=== PATIENT | male | born 1945 | race Caucasian/White ===

== ENCOUNTER → 2016-11-16 | Outpatient (CLI) | payer MEDICARE, OTHER ==
[~2016-11-16] MED LIST: ENOX80IN SC; ESOM40CA39 PO; INSLANTI SC; LEVE500T22 PO; MAGNTAB OR; OME20GT; PRED10PA PO; [UNRECOGNIZED DRUG - OTHER]; novalog
[2016-11-16 13:24] LABS: Basophils # (auto) 0 uL; Basophils % (auto) 0.4 % (0.0-2.0); DEFINITIVE VIEW TRANSMISSION; Eosinophils # (auto) 0.7 uL; Eosinophils % (auto) 7.4 % (0.0-7.0); Hematocrit 39.8 % (41.0-53.0); Hemoglobin 12.9 g/dL (13.5-17.5); Lymphocytes # (auto) 3.7 uL; Lymphocytes % (auto) 38.2 % (10.0-50.0); Mean Corpuscular Hemoglobin 29.4 pg (28.0-32.0); Mean Corpuscular Hgb Conc. 32.5 g/dL (32.0-36.0); Mean Corpuscular Volume 90.5 fL (80.0-100.0); Mean Platelet Volume 10.4 fL (7.4-10.4); Monocytes # (auto) 0.7 uL; Monocytes % (auto) 7.5 % (0.0-12.0); Neutrophils # (auto) 4.5 uL; Neutrophils % (auto) 46.5 % (37.0-80.0); Platelet Count (auto) 314 10^3/uL (140-450); Red Cell Distribution Width 13.1 % (11.6-16.0); White Blood Cell 9.7 10^3/uL (4.4-10.8)
[2016-11-16 14:18] LABS: Albumin 3.4 g/dL (3.4-5.0); BUN/Creatinine Ratio 20.4; Bilirubin, Total 0.6 mg/dL (0.2-1.0); Calcium 9.1 mg/dL (8.5-10.1); Potassium 4.8 mmol/L (3.5-5.1); Total Protein 6.9 g/dL (6.4-8.2)
== END | disposition home or self-care (01) ==
LOC: LAB 08:28
PROVIDERS: ATTEND Internal Medicine Cardiovascular Disease
DX: I10 Essential (primary) hypertension (principal); E78.00 Pure hypercholesterolemia, unspecified; E11.9 Type 2 diabetes mellitus without complications; R97.20 Elevated prostate specific antigen [PSA]; R53.81 Other malaise; E03.9 Hypothyroidism, unspecified; D64.9 Anemia, unspecified; E55.9 Vitamin D deficiency, unspecified; N39.0 Urinary tract infection, site not specified; Z94.1 Heart transplant status
CPT/HCPCS: 36415; 80053; 80061; 80197; 82306; 83036; 84153; 84443; 85025

== ENCOUNTER 2017-01-22 20:44 | Inpatient (IN) | payer MEDICARE, OTHER ==
[~2017-01-22] VITALS: Ht 177.8 cm; Wt 103.7 kg
[2017-01-22 21:32] LABS: Basophils # (auto) 0 uL; Eosinophils # (auto) 0.1 uL; Eosinophils % (auto) 0.3 % (0.0-7.0); Hematocrit 37.8 % (41.0-53.0); Hemoglobin 12.4 g/dL (13.5-17.5); Lymphocytes # (auto) 2.1 uL; Lymphocytes % (auto) 10.9 % (10.0-50.0); Mean Corpuscular Hemoglobin 29.4 pg (28.0-32.0); Mean Corpuscular Hgb Conc. 32.7 g/dL (32.0-36.0); Mean Corpuscular Volume 89.8 fL (80.0-100.0); Mean Platelet Volume 8.2 fL (7.4-10.4); Monocytes # (auto) 1.6 uL; Monocytes % (auto) 8.1 % (0.0-12.0); Neutrophils # (auto) 15.8 uL; Neutrophils % (auto) 80.7 % (37.0-80.0); Platelet Count (auto) 304 10^3/uL (140-450); Red Cell Distribution Width 13.8 % (11.6-16.0); White Blood Cell 19.6 10^3/uL (4.4-10.8)
[2017-01-22] MEDS ORDERED: cefTAZidime 1 GM in D5W 5% 50 ML IV SCH (21:45)
[2017-01-22] MEDS: SODIUM CHLORIDE 0.9% 1,000 ML IV SCH (21:45)
[2017-01-22] MEDS ORDERED: MORPHINE SULF INJ 2 MG/ML SYRINGE 1ML IV PRN (21:45)
[2017-01-22] MEDS ORDERED: NITROGLYCERIN 0.4 MG SL TAB SL PRN (21:45)
[2017-01-22] MEDS ORDERED: VANCOMYCIN PER PHARMACY 0 MG IV SCH (21:45)
[2017-01-22] MEDS ORDERED: DEXTROSE (50%) 50ML SYRG IV PRN (21:45)
[2017-01-22 21:49] LABS: INR 0.99 (0.9-1.15); Prothrombin Time 10.7 sec (9.37-12.3)
[2017-01-22 21:57] LABS: Albumin 3.3 g/dL (3.4-5.0); Alkaline Phosphatase 54 U/L (45-117); Amylase 57 U/L (25-115); Anion Gap 9 (5-15); Aspartate Aminotransferase 17 U/L (15-37); BUN/Creatinine Ratio 23.5; Bilirubin, Total 0.6 mg/dL (0.2-1.0); Blood Urea Nitrogen 32 mg/dL (7-18); Calcium 8.9 mg/dL (8.5-10.1); Carbon Dioxide 25 mmol/L (21-32); Chloride 106 mmol/L (98-107); GFR African American 66 mL/min; GFR Non-African American 55 mL/min; Glucose 129 mg/dL (74-106); Magnesium 1.6 mg/dL (1.6-2.6); Potassium 5.4 mmol/L (3.5-5.1); Sodium 140 mmol/L (136-145); Total Protein 6.6 g/dL (6.4-8.2)
[2017-01-22] MEDS: FAMOTIDINE INJECTION 40 MG in SODIUM CHL 0.9% 100 ML IV SCH (22:00)
[2017-01-22] MEDS ORDERED: LEVETIRACETAM 500 MG TAB PO ONE (22:00)
[2017-01-22 22:01] LABS: Urine Bilirubin Negative (Negative); Urine Blood Negative /uL (Negative); Urine Color Yellow (Yellow); Urine Glucose Normal (Normal); Urine Hyaline Cast FEW /lpf (0 - 2); Urine Ketone Negative (Negative); Urine Nitrite Negative (Negative); Urine RBC <1 /hpf (0 - 3); Urine Urobilinogen Normal (Negative); Urine pH 6.5 (5.0-8.0)
[2017-01-22] MEDS: MYCOPHENOLIC ACID 360 MG PO SCH (23:04)
[2017-01-22] MEDS: cefTAZidime 1 GM in D5W 5% 50 ML IV SCH (23:05)
[2017-01-23] MEDS: ACCU-CHEK COMFORT CURVE STRIP VI SCH ×7 (00:19→23:49)
[2017-01-23] MEDS: InsuLIN REG 1unit/0.01ml Soln (100units/ml) SC SCH ×7 (04:41→23:56)
[2017-01-23] MEDS: HYDROmorphone HCL 2 MG/ML VL IV PRN ×5 (04:49→20:52)
[2017-01-23] MEDS: cefTAZidime 1 GM in D5W 5% 50 ML IV SCH ×3 (06:38→22:20)
[2017-01-23 06:41] LABS: Basophils # (auto) 0 uL; Basophils % (auto) 0.1 % (0.0-2.0); Eosinophils # (auto) 0.1 uL; Eosinophils % (auto) 0.6 % (0.0-7.0); Hematocrit 33.9 % (41.0-53.0); Hemoglobin 11.1 g/dL (13.5-17.5); Lymphocytes % (auto) 13.1 % (10.0-50.0); Mean Corpuscular Hemoglobin 29.5 pg (28.0-32.0); Mean Corpuscular Hgb Conc. 32.9 g/dL (32.0-36.0); Mean Corpuscular Volume 89.6 fL (80.0-100.0); Mean Platelet Volume 8.7 fL (7.4-10.4); Monocytes # (auto) 1.4 uL; Monocytes % (auto) 9.1 % (0.0-12.0); Neutrophils # (auto) 12.1 uL; Neutrophils % (auto) 77.1 % (37.0-80.0); Platelet Count (auto) 263 10^3/uL (140-450); Red Cell Distribution Width 13.9 % (11.6-16.0); White Blood Cell 15.6 10^3/uL (4.4-10.8)
[2017-01-23 06:59] LABS: BUN/Creatinine Ratio 22.5; Calcium 8.4 mg/dL (8.5-10.1)
[2017-01-23] MEDS: SODIUM CHLORIDE 0.9% 1,000 ML IV SCH ×2 (07:54→17:37)
[2017-01-23] MEDS: METOCLOPRAMIDE HCL 5MG/ml INJ 2ml VIAL IV PRN ×2 (07:54→14:32)
[2017-01-23] MEDS: MYCOPHENOLIC ACID 360 MG PO SCH ×2 (10:00→21:49)
[2017-01-23] MEDS ORDERED: PREDNISONE 5 MG PO SCH (10:00)
[2017-01-23] MEDS: FAMOTIDINE INJECTION 40 MG in SODIUM CHL 0.9% 100 ML IV SCH ×2 (10:24→21:31)
[2017-01-23] MEDS: ENOXAPARIN SOD 80 MG/0.8ML SYRINGE SC SCH (10:24)
[2017-01-23] MEDS: LEVETIRACETAM 500 MG TAB PO SCH (10:24)
[2017-01-23] MEDS: predniSONE 5 MG TAB PO SCH (10:24)
[2017-01-23] MEDS: VANCOMYCIN 1,250 MG in D5W 5% 250 ML IV SCH ×3 (11:39)
[2017-01-23] MEDS ORDERED: BISACODYL 10 MG RECT SUPP PR PRN (14:00)
[2017-01-23] MEDS ORDERED: BISACODYL 10 MG RECT SUPP PR ONE (14:00)
[2017-01-24] VITALS (7 sets, daily range): BP systolic 125–146; BP diastolic 72–87
[2017-01-24] MEDS: VANCOMYCIN 1,250 MG in D5W 5% 250 ML IV SCH (00:24)
[2017-01-24] MEDS: HYDROmorphone HCL 2 MG/ML VL IV PRN ×4 (00:33→23:05)
[2017-01-24] MEDS: SODIUM CHLORIDE 0.9% 1,000 ML IV SCH ×3 (03:45→23:45)
[2017-01-24] MEDS: InsuLIN REG 1unit/0.01ml Soln (100units/ml) SC SCH ×5 (04:00→20:43)
[2017-01-24] MEDS: ACCU-CHEK COMFORT CURVE STRIP VI SCH ×5 (04:14→20:00)
[2017-01-24] MEDS: cefTAZidime 1 GM in D5W 5% 50 ML IV SCH ×3 (05:49→22:10)
[2017-01-24 05:55] LABS: Basophils # (auto) 0 uL; Basophils % (auto) 0.4 % (0.0-2.0); Eosinophils # (auto) 0.4 uL; Eosinophils % (auto) 4.4 % (0.0-7.0); Hematocrit 34.6 % (41.0-53.0); Hemoglobin 11.3 g/dL (13.5-17.5); Lymphocytes # (auto) 1.2 uL; Lymphocytes % (auto) 13.2 % (10.0-50.0); Mean Corpuscular Hemoglobin 29.2 pg (28.0-32.0); Mean Corpuscular Hgb Conc. 32.6 g/dL (32.0-36.0); Mean Corpuscular Volume 89.7 fL (80.0-100.0); Mean Platelet Volume 9.1 fL (7.4-10.4); Monocytes # (auto) 0.8 uL; Monocytes % (auto) 8.8 % (0.0-12.0); Neutrophils # (auto) 6.5 uL; Neutrophils % (auto) 73.2 % (37.0-80.0); Platelet Count (auto) 248 10^3/uL (140-450); Red Cell Distribution Width 13.9 % (11.6-16.0); White Blood Cell 8.9 10^3/uL (4.4-10.8)
[2017-01-24 06:11] LABS: BUN/Creatinine Ratio 17.9; Calcium 8.2 mg/dL (8.5-10.1); Potassium 4.3 mmol/L (3.5-5.1)
[2017-01-24] MEDS: predniSONE 5 MG TAB PO SCH ×2 (08:43→08:44)
[2017-01-24] MEDS: ENOXAPARIN SOD 80 MG/0.8ML SYRINGE SC SCH ×2 (08:43→08:45)
[2017-01-24] MEDS: LEVETIRACETAM 500 MG TAB PO SCH ×2 (08:44→17:57)
[2017-01-24] MEDS: FAMOTIDINE INJECTION 40 MG in SODIUM CHL 0.9% 100 ML IV SCH ×2 (09:33→22:09)
[2017-01-24] MEDS: MYCOPHENOLIC ACID 360 MG PO SCH ×2 (10:00→18:52)
[2017-01-24] MEDS ORDERED: TACR1CAP19 PO (14:09)
[2017-01-24] MEDS ORDERED: MAGNESIUM CITRATE SOLUTION 300 ML BTL PO ONE (14:30)
[2017-01-24] MEDS ORDERED: TACROLIMUS 1 MG CAP PO ONE (14:45)
[2017-01-24] MEDS ORDERED: NOR5T PO (19:04)
[2017-01-24] MEDS ORDERED: SUCR1TAB38 PO (19:04)
[2017-01-24] MEDS ORDERED: GEMF600T3 PO (19:04)
[2017-01-24] MEDS ORDERED: MYCO1TAB2 PO (19:08)
[2017-01-24] MEDS: TACROLIMUS 1 MG CAP PO SCH (22:11)
[2017-01-25] VITALS (7 sets, daily range): BP systolic 118–140; BP diastolic 54–85
[2017-01-25] MEDS: ACCU-CHEK COMFORT CURVE STRIP VI SCH ×7 (00:03→23:32)
[2017-01-25] MEDS: InsuLIN REG 1unit/0.01ml Soln (100units/ml) SC SCH ×7 (03:59→23:32)
[2017-01-25 04:19] LABS: Basophils # (auto) 0 uL; Basophils % (auto) 0.4 % (0.0-2.0); Eosinophils # (auto) 0.6 uL; Eosinophils % (auto) 6.1 % (0.0-7.0); Hematocrit 30.6 % (41.0-53.0); Lymphocytes # (auto) 1.6 uL; Lymphocytes % (auto) 16.6 % (10.0-50.0); Mean Corpuscular Hemoglobin 29.3 pg (28.0-32.0); Mean Corpuscular Hgb Conc. 32.7 g/dL (32.0-36.0); Mean Corpuscular Volume 89.7 fL (80.0-100.0); Mean Platelet Volume 7.9 fL (7.4-10.4); Monocytes # (auto) 1.2 uL; Monocytes % (auto) 12.6 % (0.0-12.0); Neutrophils # (auto) 6.2 uL; Neutrophils % (auto) 64.3 % (37.0-80.0); Platelet Count (auto) 245 10^3/uL (140-450); Red Cell Distribution Width 13.6 % (11.6-16.0); White Blood Cell 9.6 10^3/uL (4.4-10.8)
[2017-01-25 04:43] LABS: BUN/Creatinine Ratio 22.5; Calcium 7.4 mg/dL (8.5-10.1); Potassium 4.1 mmol/L (3.5-5.1)
[2017-01-25] MEDS ORDERED: VANCOMYCIN 1,250 MG in D5W 5% 250 ML IV SCH (05:00)
[2017-01-25] MEDS: cefTAZidime 1 GM in D5W 5% 50 ML IV SCH (05:48)
[2017-01-25] MEDS: HYDROmorphone HCL 2 MG/ML VL IV PRN ×5 (05:48→23:31)
[2017-01-25] MEDS: SODIUM CHLORIDE 0.9% 1,000 ML IV SCH ×2 (09:49→19:46)
[2017-01-25] MEDS: METOCLOPRAMIDE HCL 5MG/ml INJ 2ml VIAL IV PRN (09:58)
[2017-01-25] MEDS: predniSONE 5 MG TAB PO SCH (10:00)
[2017-01-25] MEDS: TACROLIMUS 1 MG CAP PO SCH ×2 (10:00→21:28)
[2017-01-25] MEDS: LEVETIRACETAM 500 MG TAB PO SCH ×2 (10:00→18:10)
[2017-01-25] MEDS: MYCOPHENOLIC ACID 360 MG PO SCH ×2 (10:01→21:29)
[2017-01-25] MEDS: ENOXAPARIN SOD 80 MG/0.8ML SYRINGE SC SCH (10:01)
[2017-01-25] MEDS: CEPHALEXIN 250 MG CAP PO SCH ×2 (14:58→21:27)
[2017-01-25] MEDS ORDERED: MAGNESIUM CITRATE SOLUTION 300 ML BTL PO ONE ×2 (17:00→22:00)
[2017-01-25] MEDS: FAMOTIDINE 20 MG TAB PO SCH (21:27)
[2017-01-26] MEDS: ACCU-CHEK COMFORT CURVE STRIP VI SCH ×4 (03:35→16:00)
[2017-01-26] MEDS: InsuLIN REG 1unit/0.01ml Soln (100units/ml) SC SCH ×4 (03:37→16:40)
[2017-01-26 05:01] VITALS: BP 142/84
[2017-01-26] MEDS: SODIUM CHLORIDE 0.9% 1,000 ML IV SCH ×2 (05:45→16:40)
[2017-01-26] MEDS: HYDROmorphone HCL 2 MG/ML VL IV PRN ×3 (06:34→12:32)
[2017-01-26 07:53] VITALS: BP 143/85
[2017-01-26 08:00] VITALS: BP 143/85
[2017-01-26] MEDS: CEPHALEXIN 250 MG CAP PO SCH (09:52)
[2017-01-26] MEDS: MYCOPHENOLIC ACID 360 MG PO SCH (09:53)
[2017-01-26] MEDS: FAMOTIDINE 20 MG TAB PO SCH (09:53)
[2017-01-26] MEDS: LEVETIRACETAM 500 MG TAB PO SCH ×2 (09:53→18:00)
[2017-01-26] MEDS: predniSONE 5 MG TAB PO SCH (09:53)
[2017-01-26] MEDS: TACROLIMUS 1 MG CAP PO SCH (09:54)
[2017-01-26] MEDS: ENOXAPARIN SOD 80 MG/0.8ML SYRINGE SC SCH (09:54)
[2017-01-26 17:13] VITALS: BP 150/91
[2017-01-26 17:32] VITALS: BP 150/91
== END 2017-01-26 18:05 | disposition home or self-care (01) | DRG 862 ==
LOC: EDBD 20:44 → ER 20:45 → TELE 20:46 → EAST 01-23 23:36
PROVIDERS: ADMIT Internal Medicine Cardiovascular Disease; ATTEND Internal Medicine Cardiovascular Disease
PROC: 5A09357 Assistance with Respiratory Ventilation, Less than 24 Consecutive Hours, Continuous Positive Airway Pressure (ICD-10-PCS; principal; 2017-01-22)
DX: T81.4XXA Infection following a procedure, initial encounter (principal); A41.9 Sepsis, unspecified organism; L03.90 Cellulitis, unspecified; K56.60 Unspecified intestinal obstruction; I25.811 Atherosclerosis of native coronary artery of transplanted heart without angina pectoris; Y83.9 Surgical procedure, unspecified as the cause of abnormal reaction of the patient, or of later complication, without mention of misadventure at the time of the procedure; C44.91 Basal cell carcinoma of skin, unspecified; C44.92 Squamous cell carcinoma of skin, unspecified; E78.5 Hyperlipidemia, unspecified; I10 Essential (primary) hypertension; J98.6 Disorders of diaphragm; K52.9 Noninfective gastroenteritis and colitis, unspecified; M19.90 Unspecified osteoarthritis, unspecified site; Z95.5 Presence of coronary angioplasty implant and graft
CPT/HCPCS: 36415; 71010; 74000; 74020; 80048; 80053; 80202; 81001; 82150; 82962; 83690; 83735; 84484; 85025; 85610; 85730; 87040; 87081; 87086; 93005; 94660; 96374; 96375; J1815; J3490; J7060; J7507

== ENCOUNTER → 2017-02-02 | Outpatient (CLI) | payer MEDICARE ==
[~2017-02-02] VITALS: Ht 30.5 cm; Wt 0.5 kg
[~2017-02-02] MED LIST changes: +GEMF600T3 PO; +IOHEXOL 350 MG/ML 100ML IJ ONE; +MYCO1TAB2 PO; +NOR5T PO; +SODIUM CHLORIDE 0.9% 1,000 ML IV SCH; +SUCR1TAB38 PO; +TACR1CAP19 PO; -[UNRECOGNIZED DRUG - OTHER]
[2017-02-02 10:20] VITALS: BP 106/76
[2017-02-02 12:10] VITALS: BP 110/80
== END | disposition home or self-care (01) ==
LOC: Rad HDHVI 10:08
PROVIDERS: ATTEND Internal Medicine Cardiovascular Disease
DX: K55.9 Vascular disorder of intestine, unspecified (principal)
CPT/HCPCS: 74175; 96361; 96374; G0463; Q9967; 96360

== ENCOUNTER → 2017-04-05 | Outpatient (CLI) | payer MEDICARE ==
[~2017-04-05] MED LIST changes: +HYDR-4663 PO; -IOHEXOL 350 MG/ML 100ML IJ ONE; -NOR5T PO; -SODIUM CHLORIDE 0.9% 1,000 ML IV SCH
== END | disposition home or self-care (01) ==
LOC: Rad HDHVI 13:54
PROVIDERS: ATTEND Internal Medicine Cardiovascular Disease
DX: I10 Essential (primary) hypertension (principal); E78.5 Hyperlipidemia, unspecified
CPT/HCPCS: 93306

== ENCOUNTER → 2017-04-09 | Outpatient (CLI) | payer MEDICARE ==
[~2017-04-09] VITALS: Ht 177.8 cm; Wt 92.1 kg
[~2017-04-09] MED LIST changes: +ADENOSINE 77 MG in GIVE UN-DILUTED 0 ML IV ONE; +ADENOSINE 90 MG/30 ML INJ IV ONE
== END | disposition home or self-care (01) ==
LOC: Rad HDHVI 13:47
PROVIDERS: ATTEND Internal Medicine Cardiovascular Disease
DX: I11.0 Hypertensive heart disease with heart failure (principal); I50.9 Heart failure, unspecified; E78.00 Pure hypercholesterolemia, unspecified; E11.9 Type 2 diabetes mellitus without complications; R06.02 Shortness of breath; Z95.0 Presence of cardiac pacemaker
CPT/HCPCS: 78452; 93005; 96374; 96375; A9500; J0153

== ENCOUNTER → 2017-04-24 | Outpatient (CLI) | payer MEDICARE ==
[~2017-04-24] MED LIST changes: -ADENOSINE 77 MG in GIVE UN-DILUTED 0 ML IV ONE; -ADENOSINE 90 MG/30 ML INJ IV ONE
== END | disposition home or self-care (01) ==
LOC: Rad HDHVI 11:18
PROVIDERS: ATTEND Internal Medicine Cardiovascular Disease
DX: I73.9 Peripheral vascular disease, unspecified (principal)
CPT/HCPCS: 93926

== ENCOUNTER → 2017-04-27 | Outpatient (CLI) | payer MEDICARE ==
[~2017-04-27] VITALS: Ht 177.8 cm; Wt 93.0 kg
[~2017-04-27] MED LIST changes: +ATOR40TA52 PO; +HYDR-4072 PO; +LEVE250T18 PO; +OMEP20CA74 PO; +PRE1T PO
[2017-04-27 11:30] VITALS: BP 107/76
[2017-04-27 12:00] VITALS: BP 116/73
[2017-04-27 17:02] LABS: Basophils # (auto) 0 uL; Basophils % (auto) 0.4 % (0.0-2.0); CONDITION Y; Eosinophils # (auto) 0.4 uL; Eosinophils % (auto) 3.2 % (0.0-7.0); Hematocrit 39.2 % (41.0-53.0); Hemoglobin 12.9 g/dL (13.5-17.5); Lymphocytes # (auto) 2.5 uL; Lymphocytes % (auto) 20.3 % (10.0-50.0); Mean Corpuscular Hemoglobin 29.7 pg (28.0-32.0); Mean Corpuscular Hgb Conc. 32.9 g/dL (32.0-36.0); Mean Corpuscular Volume 90.1 fL (80.0-100.0); Mean Platelet Volume 9.7 fL (7.4-10.4); Monocytes # (auto) 0.9 uL; Monocytes % (auto) 7.1 % (0.0-12.0); Neutrophils # (auto) 8.4 uL; Platelet Count (auto) 263 10^3/uL (140-450); Red Cell Distribution Width 13.7 % (11.6-16.0); White Blood Cell 12.2 10^3/uL (4.4-10.8)
[2017-04-27 17:08] LABS: Potassium 4.9 mmol/L (3.5-5.1)
[2017-04-27 17:11] LABS: BUN/Creatinine Ratio 22.8
[2017-04-27 17:23] LABS: INR 0.96 (0.9-1.15); Partial Thromboplastin Time 25.1 sec (22.64-33.71); Prothrombin Time 10.5 sec (9.37-12.3)
== END | disposition home or self-care (01) ==
LOC: CHF HDHVI 10:56
PROVIDERS: ATTEND Internal Medicine Cardiovascular Disease
DX: Z01.818 Encounter for other preprocedural examination (principal); I10 Essential (primary) hypertension; D64.9 Anemia, unspecified; R79.1 Abnormal coagulation profile
CPT/HCPCS: 36415; 80048; 85025; 85610; 85730; 93005; G0463

== ENCOUNTER → 2017-05-03 | Day surgery (SDC) | payer MEDICARE ==
[~2017-05-03] MED LIST changes: +ANGIOMAX 250 MG VIAL IV ONE; -ESOM40CA39 PO; +HEPARIN IN NS 1000Units/500mL 1,500 ML ONE; -HYDR-4663 PO; +IOHEXOL 350 MG/ML 100ML IJ ONE; +LIDOCAINE 2%HCL (LOCAL ANESTH.) INJ 20ML MDV ONE; +MIDAZOLAM HCL 1MG/1ML-2 ML VIAL ONE; -OME20GT; +SODIUM CHL 0.9% 0 ML ONE; +fentaNYL CITRATE 100 MCG/2 ML VL ONE
== END | disposition home or self-care (01) ==
LOC: CATH 09:50
PROVIDERS: ATTEND Internal Medicine Cardiovascular Disease
DX: I42.9 Cardiomyopathy, unspecified (principal); Z94.1 Heart transplant status; I25.2 Old myocardial infarction; I99.8 Other disorder of circulatory system; M19.90 Unspecified osteoarthritis, unspecified site; J40 Bronchitis, not specified as acute or chronic; F41.9 Anxiety disorder, unspecified
CPT/HCPCS: 82962; 93460; J2250

== ENCOUNTER → 2017-05-11 | Outpatient (CLI) | payer MEDICARE ==
[~2017-05-11] MED LIST changes: -ANGIOMAX 250 MG VIAL IV ONE; -HEPARIN IN NS 1000Units/500mL 1,500 ML ONE; -IOHEXOL 350 MG/ML 100ML IJ ONE; -LIDOCAINE 2%HCL (LOCAL ANESTH.) INJ 20ML MDV ONE; -MIDAZOLAM HCL 1MG/1ML-2 ML VIAL ONE; -SODIUM CHL 0.9% 0 ML ONE; -fentaNYL CITRATE 100 MCG/2 ML VL ONE
[2017-05-11 16:51] LABS: Albumin 3.3 g/dL (3.4-5.0); BUN/Creatinine Ratio 19.2; Calcium 8.2 mg/dL (8.5-10.1)
[2017-05-11 16:53] LABS: Basophils # (auto) 0 uL; Basophils % (auto) 0.2 % (0.0-2.0); Bilirubin, Total 0.5 mg/dL (0.2-1.0); CONDITION Y; Eosinophils # (auto) 0.1 uL; Eosinophils % (auto) 0.8 % (0.0-7.0); Hematocrit 39.7 % (41.0-53.0); Lymphocytes # (auto) 2.8 uL; Lymphocytes % (auto) 24.8 % (10.0-50.0); Mean Corpuscular Hemoglobin 29.6 pg (28.0-32.0); Mean Corpuscular Hgb Conc. 32.8 g/dL (32.0-36.0); Mean Corpuscular Volume 90.4 fL (80.0-100.0); Mean Platelet Volume 9.9 fL (7.4-10.4); Monocytes # (auto) 0.6 uL; Monocytes % (auto) 5.2 % (0.0-12.0); Neutrophils # (auto) 7.8 uL; Platelet Count (auto) 297 10^3/uL (140-450); Red Cell Distribution Width 13.7 % (11.6-16.0); White Blood Cell 11.3 10^3/uL (4.4-10.8)
[2017-05-11 17:00] LABS: INR 0.92 (0.9-1.15); Partial Thromboplastin Time 24.7 sec (22.64-33.71)
== END | disposition home or self-care (01) ==
LOC: LAB 10:39
PROVIDERS: ATTEND Internal Medicine Cardiovascular Disease
DX: I10 Essential (primary) hypertension (principal); R97.20 Elevated prostate specific antigen [PSA]; R53.81 Other malaise; E03.9 Hypothyroidism, unspecified; R79.1 Abnormal coagulation profile; D68.59 Other primary thrombophilia
CPT/HCPCS: 36415; 80053; 80197; 81241; 84153; 84403; 84443; 85025; 85301; 85302; 85305; 85306; 85384; 85610; 85613; 85670; 85705; 85730; 85732

== ENCOUNTER → 2017-06-27 | Outpatient (CLI) | payer MEDICARE ==
[~2017-06-27] MED LIST changes: +CYANOCOBALAMIN (B-12) 1000 MCG/1 ML VIAL IM ONE; +CYANOCOBALAMIN (B-12) 1000 MCG/1 ML VIAL ONE
[2017-06-27 11:00] VITALS: BP 116/74
[2017-06-27 12:30] VITALS: BP 120/72
== END | disposition home or self-care (01) ==
LOC: CHF HDHVI 10:55
PROVIDERS: ATTEND Internal Medicine Cardiovascular Disease
DX: J98.11 Atelectasis (principal); I70.0 Atherosclerosis of aorta; J90 Pleural effusion, not elsewhere classified
CPT/HCPCS: 71020; 96372; G0463; J3420

== ENCOUNTER → 2017-07-23 | Outpatient (CLI) | payer MEDICARE ==
[~2017-07-23] MED LIST changes: -CYANOCOBALAMIN (B-12) 1000 MCG/1 ML VIAL IM ONE; -CYANOCOBALAMIN (B-12) 1000 MCG/1 ML VIAL ONE
== END | disposition home or self-care (01) ==
LOC: Rad HDHVI 16:23
PROVIDERS: ATTEND Internal Medicine Cardiovascular Disease
DX: I70.0 Atherosclerosis of aorta (principal)
CPT/HCPCS: 71250

== ENCOUNTER → 2017-07-30 | Outpatient (CLI) | payer MEDICARE ==
[~2017-07-30] MED LIST changes: +SODIUM CHLORIDE 0.9% 1,000 ML IV SCH
[2017-07-30 15:00] VITALS: BP 122/68
[2017-07-30 16:23] LABS: Basophils # (auto) 0 uL; Basophils % (auto) 0.3 % (0.0-2.0); Eosinophils # (auto) 0.3 uL; Eosinophils % (auto) 2.4 % (0.0-7.0); Hematocrit 44.3 % (41.0-53.0); Hemoglobin 14.5 g/dL (13.5-17.5); Lymphocytes # (auto) 2.8 uL; Lymphocytes % (auto) 24.7 % (10.0-50.0); Mean Corpuscular Hemoglobin 29.3 pg (28.0-32.0); Mean Corpuscular Hgb Conc. 32.6 g/dL (32.0-36.0); Mean Corpuscular Volume 89.9 fL (80.0-100.0); Mean Platelet Volume 9.2 fL (6.9-10.8); Monocytes # (auto) 1.3 uL; Monocytes % (auto) 11.4 % (0.0-12.0); Neutrophils % (auto) 61.2 % (37.0-80.0); Nucleated Red Blood Cells % 0.3 %; Platelet Count (auto) 263 10^3/uL (140-450); Red Cell Distribution Width 13.9 % (11.8-14.3); White Blood Cell 11.4 10^3/uL (4.4-10.8)
[2017-07-30 16:28] LABS: Urine Bilirubin Negative (Negative); Urine Blood Negative /uL (Negative); Urine Color Yellow (Yellow); Urine Glucose Normal (Normal); Urine Hyaline Cast FEW /lpf (0 - 2); Urine Ketone Negative (Negative); Urine Mucus FEW (None Seen); Urine Nitrite Negative (Negative); Urine RBC <1 /hpf (0 - 3); Urine Squamous Epithelial Cell FEW /hpf (<5); Urine Urobilinogen Normal (Negative)
[2017-07-30 16:37] LABS: Calcium 8.9 mg/dL (8.5-10.1); Magnesium 1.7 mg/dL (1.6-2.6); Potassium 4.5 mmol/L (3.5-5.1)
[2017-07-30 16:45] LABS: BUN/Creatinine Ratio 17.4
== END | disposition home or self-care (01) ==
LOC: CHF HDHVI 13:31
PROVIDERS: ATTEND Internal Medicine Cardiovascular Disease
DX: E86.0 Dehydration (principal); I11.0 Hypertensive heart disease with heart failure; I50.9 Heart failure, unspecified; E83.42 Hypomagnesemia; D64.9 Anemia, unspecified; N39.0 Urinary tract infection, site not specified; R19.7 Diarrhea, unspecified; Z94.1 Heart transplant status
CPT/HCPCS: 36415; 80048; 81001; 83735; 85025; 87086; 96360; G0463

== ENCOUNTER → 2017-08-14 | Outpatient (CLI) | payer MEDICARE ==
[~2017-08-14] MED LIST changes: -SODIUM CHLORIDE 0.9% 1,000 ML IV SCH
[2017-08-14 12:38] LABS: B-Type Natriuretic Peptide 35.62 pg/mL (0-100)
[2017-08-14 12:43] LABS: Temperature: 22.1 C (20.0-25.0)
== END | disposition home or self-care (01) ==
LOC: LAB 10:28
PROVIDERS: ATTEND Internal Medicine Cardiovascular Disease
DX: I50.9 Heart failure, unspecified (principal)
CPT/HCPCS: 83880

== ENCOUNTER → 2017-09-18 | Outpatient (CLI) | payer MEDICARE ==
[2017-09-18 09:25] VITALS: BP 147/89
[2017-09-18 12:05] LABS: Basophils # (auto) 0 uL; Basophils % (auto) 0.3 % (0.0-2.0); Eosinophils # (auto) 0.2 uL; Eosinophils % (auto) 1.7 % (0.0-7.0); Hematocrit 45.4 % (41.0-53.0); Hemoglobin 14.8 g/dL (13.5-17.5); Lymphocytes # (auto) 2.6 uL; Lymphocytes % (auto) 23.9 % (10.0-50.0); Mean Corpuscular Hemoglobin 28.8 pg (28.0-32.0); Mean Corpuscular Hgb Conc. 32.7 g/dL (32.0-36.0); Monocytes % (auto) 8.9 % (0.0-12.0); Neutrophils # (auto) 7.1 uL; Neutrophils % (auto) 65.2 % (37.0-80.0); Nucleated Red Blood Cells % 0.1 %; Platelet Count (auto) 250 10^3/uL (140-450); Red Blood Cells 5.16 10^6/uL (4.5-5.90)
[2017-09-18 12:23] LABS: Urine Bacteria NONE SEEN /hpf (None Seen); Urine Blood TRACE /uL (Negative); Urine Mucus FEW (None Seen); Urine Specific Gravity 1.017 (1.001-1.035); Urine WBC 1 /hpf (0 - 3)
[2017-09-18 12:32] LABS: Albumin 2.9 g/dL (3.4-5.0); BUN/Creatinine Ratio 20.5; Bilirubin, Total 0.5 mg/dL (0.2-1.0); Calcium 8.6 mg/dL (8.5-10.1); Magnesium 2.1 mg/dL (1.6-2.6); Potassium 3.8 mmol/L (3.5-5.1); Total Protein 6.5 g/dL (6.4-8.2)
== END | disposition home or self-care (01) ==
LOC: CHF HDHVI 09:45
PROVIDERS: ATTEND Internal Medicine Cardiovascular Disease
DX: I10 Essential (primary) hypertension (principal); E11.9 Type 2 diabetes mellitus without complications; E55.9 Vitamin D deficiency, unspecified; D51.9 Vitamin B12 deficiency anemia, unspecified; G40.89 Other seizures; D64.9 Anemia, unspecified; N39.0 Urinary tract infection, site not specified; Z94.1 Heart transplant status
CPT/HCPCS: 36415; 80053; 81001; 82306; 82542; 82607; 83036; 83735; 85025; 87086; G0463

== ENCOUNTER → 2017-10-25 | Outpatient (CLI) | payer MEDICARE ==
[~2017-10-25] MED LIST changes: +IOHEXOL 350 MG/ML 100ML IJ ONE; +SODIUM CHLORIDE 0.9% 250 ML IV ONE
[2017-10-25 11:05] VITALS: BP 106/72
[2017-10-25 12:40] VITALS: BP 124/80
== END | disposition home or self-care (01) ==
LOC: Rad HDHVI 10:48
PROVIDERS: ATTEND Internal Medicine Cardiovascular Disease
DX: K57.30 Diverticulosis of large intestine without perforation or abscess without bleeding (principal); M47.896 Other spondylosis, lumbar region; J98.11 Atelectasis; N28.89 Other specified disorders of kidney and ureter; Z90.5 Acquired absence of kidney
CPT/HCPCS: 74178; 82565; 96360; 96361; G0463; Q9967; 96374

== ENCOUNTER → 2017-12-18 | Outpatient (CLI) | payer MEDICARE ==
[~2017-12-18] MED LIST changes: -IOHEXOL 350 MG/ML 100ML IJ ONE; -SODIUM CHLORIDE 0.9% 250 ML IV ONE
[2017-12-18 16:02] LABS: Basophils # (auto) 0 uL; Basophils % (auto) 0.4 % (0.0-2.0); Eosinophils # (auto) 0.4 uL; Eosinophils % (auto) 3.7 % (0.0-7.0); Hematocrit 40.1 % (41.0-53.0); Lymphocytes # (auto) 2.4 uL; Lymphocytes % (auto) 22.2 % (10.0-50.0); Mean Corpuscular Hgb Conc. 32.3 g/dL (32.0-36.0); Mean Corpuscular Volume 92.9 fL (80.0-100.0); Neutrophils # (auto) 7.1 uL; Neutrophils % (auto) 64.7 % (37.0-80.0); Nucleated Red Blood Cells % 0.5 %; Platelet Count (auto) 246 10^3/uL (140-450); Red Blood Cells 4.32 10^6/uL (4.5-5.90); Red Cell Distribution Width 15.2 % (11.8-14.3)
[2017-12-18 16:03] LABS: Urine Blood Negative /uL (Negative); Urine Specific Gravity 1.017 (1.001-1.035)
[2017-12-18 16:25] LABS: Albumin 3.4 g/dL (3.4-5.0); BUN/Creatinine Ratio 19.4; Bilirubin, Total 0.7 mg/dL (0.2-1.0); Calcium 8.8 mg/dL (8.5-10.1); Potassium 4.8 mmol/L (3.5-5.1); Total Protein 6.9 g/dL (6.4-8.2)
[2017-12-18 16:28] LABS: Free T4 (Free Thyroxine) 1.29 ng/dL (0.89-1.76); Prostate Specific Antigen 0.42 ng/mL (0.0-4.0)
== END | disposition home or self-care (01) ==
LOC: LAB 11:20
PROVIDERS: ATTEND Internal Medicine Cardiovascular Disease
DX: E78.5 Hyperlipidemia, unspecified (principal); E03.9 Hypothyroidism, unspecified; E11.9 Type 2 diabetes mellitus without complications; E55.9 Vitamin D deficiency, unspecified; R53.81 Other malaise; R97.20 Elevated prostate specific antigen [PSA]; D51.9 Vitamin B12 deficiency anemia, unspecified; I10 Essential (primary) hypertension; D64.9 Anemia, unspecified; N39.0 Urinary tract infection, site not specified
CPT/HCPCS: 36415; 80053; 80061; 81003; 82306; 82607; 83036; 84153; 84403; 84439; 84443; 85025

== ENCOUNTER → 2018-02-01 | Outpatient (CLI) | payer MEDICARE ==
[~2018-02-01] VITALS: Ht 30.5 cm; Wt 93.9 kg
[~2018-02-01] MED LIST changes: +IOHEXOL 350 MG/ML 100ML IJ ONE; +SODIUM CHLORIDE 0.9% 250 ML IV ONE
[2018-02-01 11:15] VITALS: BP 109/71
[2018-02-01 13:15] VITALS: BP 129/79
== END | disposition home or self-care (01) ==
LOC: Rad HDHVI 11:08
PROVIDERS: ATTEND Internal Medicine Cardiovascular Disease
DX: K57.30 Diverticulosis of large intestine without perforation or abscess without bleeding (principal); K43.9 Ventral hernia without obstruction or gangrene; N28.1 Cyst of kidney, acquired; N28.89 Other specified disorders of kidney and ureter; J98.6 Disorders of diaphragm; I70.0 Atherosclerosis of aorta; I11.0 Hypertensive heart disease with heart failure; I50.32 Chronic diastolic (congestive) heart failure; E11.9 Type 2 diabetes mellitus without complications; E03.9 Hypothyroidism, unspecified; E78.00 Pure hypercholesterolemia, unspecified; E78.5 Hyperlipidemia, unspecified; I25.2 Old myocardial infarction; I25.10 Atherosclerotic heart disease of native coronary artery without angina pectoris; M48.061 Spinal stenosis, lumbar region without neurogenic claudication; C44.92 Squamous cell carcinoma of skin, unspecified; F41.9 Anxiety disorder, unspecified; D68.59 Other primary thrombophilia; Z95.0 Presence of cardiac pacemaker; Z90.5 Acquired absence of kidney; Z94.1 Heart transplant status; Z90.49 Acquired absence of other specified parts of digestive tract; Z79.899 Other long term (current) drug therapy
CPT/HCPCS: 74177; 82565; 82962; 96360; G0463; J7050; Q9967

== ENCOUNTER → 2018-02-21 | Outpatient (CLI) | payer MEDICARE ==
[~2018-02-21] MED LIST changes: -IOHEXOL 350 MG/ML 100ML IJ ONE; -SODIUM CHLORIDE 0.9% 250 ML IV ONE
[2018-02-21 12:20] LABS: Basophils # (auto) 0 uL; Basophils % (auto) 0.4 % (0.0-2.0); Eosinophils # (auto) 0.3 uL; Eosinophils % (auto) 2.6 % (0.0-7.0); Hematocrit 38.8 % (41.0-53.0); Hemoglobin 12.6 g/dL (13.5-17.5); Lymphocytes # (auto) 2.3 uL; Lymphocytes % (auto) 22.5 % (10.0-50.0); Mean Corpuscular Hemoglobin 30.5 pg (28.0-32.0); Mean Corpuscular Hgb Conc. 32.5 g/dL (32.0-36.0); Mean Corpuscular Volume 93.9 fL (80.0-100.0); Monocytes # (auto) 0.7 uL; Monocytes % (auto) 7.2 % (0.0-12.0); Neutrophils # (auto) 6.8 uL; Neutrophils % (auto) 67.3 % (37.0-80.0); Nucleated Red Blood Cells % 0.1 %; Platelet Count (auto) 268 10^3/uL (140-450); Red Blood Cells 4.14 10^6/uL (4.5-5.90); Red Cell Distribution Width 13.7 % (11.8-14.3); White Blood Cell 10.2 10^3/uL (4.4-10.8)
[2018-02-21 12:33] LABS: INR 0.93 (0.9-1.15); Partial Thromboplastin Time 25.6 sec (23.78-33.04)
== END | disposition home or self-care (01) ==
LOC: LAB 10:55
PROVIDERS: ATTEND Internal Medicine Cardiovascular Disease
DX: Z01.812 Encounter for preprocedural laboratory examination (principal); I11.0 Hypertensive heart disease with heart failure; I50.9 Heart failure, unspecified; E03.9 Hypothyroidism, unspecified; E78.5 Hyperlipidemia, unspecified; E11.9 Type 2 diabetes mellitus without complications; Z95.0 Presence of cardiac pacemaker
CPT/HCPCS: 36415; 82565; 84520; 85025; 85610; 85730

== ENCOUNTER → 2018-03-12 | Outpatient (CLI) | payer MEDICARE ==
[~2018-03-12] MED LIST changes: +ONDANSETRON HCL 4 MG/2 ML VIAL IV ONE; +ONDANSETRON HCL 4 MG/2 ML VIAL ONE
[2018-03-12 11:25] VITALS: BP 151/90
[2018-03-12 13:45] VITALS: BP 118/67
[2018-03-12 16:10] LABS: Potassium 4.2 mmol/L (3.5-5.1)
[2018-03-12 16:15] LABS: BUN/Creatinine Ratio 14.7; Calcium 8.2 mg/dL (8.5-10.1); Magnesium 2.2 mg/dL (1.6-2.6)
[2018-03-12 16:33] LABS: Basophils # (auto) 0 uL; Basophils % (auto) 0.2 % (0.0-2.0); Eosinophils # (auto) 0.4 uL; Eosinophils % (auto) 2.6 % (0.0-7.0); Hematocrit 36.4 % (41.0-53.0); Hemoglobin 12.4 g/dL (13.5-17.5); Lymphocytes # (auto) 2.4 uL; Lymphocytes % (auto) 16.5 % (10.0-50.0); Mean Corpuscular Hemoglobin 30.6 pg (28.0-32.0); Mean Corpuscular Hgb Conc. 34.2 g/dL (32.0-36.0); Mean Corpuscular Volume 89.5 fL (80.0-100.0); Monocytes # (auto) 1.3 uL; Monocytes % (auto) 9.1 % (0.0-12.0); Neutrophils # (auto) 10.6 uL; Neutrophils % (auto) 71.6 % (37.0-80.0); Platelet Count (auto) 329 10^3/uL (140-450); Red Blood Cells 4.07 10^6/uL (4.5-5.90); Red Cell Distribution Width 13.1 % (11.8-14.3); White Blood Cell 14.8 10^3/uL (4.4-10.8)
== END | disposition home or self-care (01) ==
LOC: CHF HDHVI 11:37
PROVIDERS: ATTEND Internal Medicine Cardiovascular Disease
DX: K57.32 Diverticulitis of large intestine without perforation or abscess without bleeding (principal); K43.9 Ventral hernia without obstruction or gangrene; N28.89 Other specified disorders of kidney and ureter; E83.40 Disorders of magnesium metabolism, unspecified; I11.0 Hypertensive heart disease with heart failure; I50.9 Heart failure, unspecified; E11.9 Type 2 diabetes mellitus without complications; D64.9 Anemia, unspecified; Z94.1 Heart transplant status; Z95.0 Presence of cardiac pacemaker
CPT/HCPCS: 36415; 74176; 80048; 80197; 82962; 83735; 85025; 96374; G0463; J2405

== ENCOUNTER 2018-04-13 14:55 | Inpatient (IN) | payer MEDICARE ==
[~2018-04-13] VITALS: Ht 182.9 cm; Wt 99.3 kg
[~2018-04-13 14:55] MED LIST changes: -ATOR40TA52 PO; +ATOR80TA PO; +BENA20TA14 PO; +CALCTAB62 OR; -ENOX80IN SC; +ENOX80IN8 SC; -HYDR-4072 PO; +HYDR-4683 PO; +INSU100I24 SC; +KEP500T PO; -LEVE250T18 PO; -LEVE500T22 PO; +MAGN400T5 PO; -MAGNTAB OR; -MYCO1TAB2 PO; +MYCO250C PO; -OMEP20CA74 PO; +ONDA-155 PO; -ONDANSETRON HCL 4 MG/2 ML VIAL IV ONE; -ONDANSETRON HCL 4 MG/2 ML VIAL ONE; +PANC4200 PO; +PANT40TA2 PO; -PRE1T PO; +PRE5T PO; -PRED10PA PO; +SIME80CH6 PO; -SUCR1TAB38 PO; -TACR1CAP19 PO; +TACR1CAP4 PO; -novalog
[2018-04-13] MEDS ORDERED: SODIUM CHLORIDE 0.9% 1,000 ML IV ONE (15:00)
[2018-04-13 15:53] LABS: Basophils # (auto) 0.1 uL; Basophils % (auto) 0.5 % (0.0-2.0); Eosinophils # (auto) 0.3 uL; Eosinophils % (auto) 1.9 % (0.0-7.0); Hematocrit 35.8 % (41.0-53.0); Hemoglobin 11.6 g/dL (13.5-17.5); Lymphocytes # (auto) 1.4 uL; Mean Corpuscular Hemoglobin 29.9 pg (28.0-32.0); Mean Corpuscular Hgb Conc. 32.4 g/dL (32.0-36.0); Mean Corpuscular Volume 92.3 fL (80.0-100.0); Monocytes # (auto) 1.2 uL; Monocytes % (auto) 8.3 % (0.0-12.0); Neutrophils % (auto) 79.3 % (37.0-80.0); Nucleated Red Blood Cells % 0.1 %; Platelet Count (auto) 192 10^3/uL (140-450); Red Blood Cells 3.88 10^6/uL (4.5-5.90); Red Cell Distribution Width 13.9 % (11.8-14.3); White Blood Cell 13.8 10^3/uL (4.4-10.8)
[2018-04-13 16:10] LABS: INR 1.02 (0.9-1.15); Partial Thromboplastin Time 26.2 sec (23.78-33.04); Prothrombin Time 10.9 sec (9.27-12.13)
[2018-04-13 16:26] LABS: Albumin 2.2 g/dL (3.4-5.0); BUN/Creatinine Ratio 15.2; Bilirubin, Total 0.3 mg/dL (0.2-1.0); Potassium 4.8 mmol/L (3.5-5.1); Total Protein 5.9 g/dL (6.4-8.2)
[2018-04-13] MEDS ORDERED: FUROSEMIDE 20 MG/2 ML VIAL IV ONE (17:00)
[2018-04-13] MEDS ORDERED: ENOXAPARIN SOD 100 MG/1 ML SYRINGE SC ONE (17:00)
[2018-04-13] MEDS ORDERED: PIPERACILLIN-TAZOB 3.375GM 100 ML IV ONE (17:00)
[2018-04-13] MEDS ORDERED: HYDROcodone-ACET 10/325MG TAB PO ONE (18:00)
[2018-04-13] MEDS ORDERED: DEXTROSE (50%) 50ML SYRG IV PRN (19:30)
[2018-04-13] MEDS: SODIUM CHLORIDE 0.9% 1,000 ML IV SCH (19:30)
[2018-04-13 22:30] VITALS: BP 123/70
[2018-04-13 23:00] VITALS: BP 123/70
[2018-04-13] MEDS: HYDROcodone-ACET 10/325MG TAB PO PRN (23:34)
[2018-04-13] MEDS: InsuLIN REG 1unit/0.01ml Soln (100units/ml) SC SCH (23:36)
[2018-04-13] MEDS: ACCU-CHEK COMFORT CURVE STRIP VI SCH (23:36)
[2018-04-14] VITALS (7 sets, daily range): BP systolic 103–124; BP diastolic 60–78
[2018-04-14] MEDS: HYDROcodone-ACET 10/325MG TAB PO PRN ×3 (05:54→18:37)
[2018-04-14] MEDS: ACCU-CHEK COMFORT CURVE STRIP VI SCH ×4 (05:55→23:33)
[2018-04-14] MEDS: InsuLIN REG 1unit/0.01ml Soln (100units/ml) SC SCH ×4 (05:55→23:34)
[2018-04-14] MEDS ORDERED: MELA3TAB27 PO (12:21)
[2018-04-14] MEDS: SODIUM CHLORIDE 0.9% 1,000 ML IV SCH ×2 (14:44→22:30)
[2018-04-14] MEDS ORDERED: CIPROFLOXACIN HCL 500 MG TAB PO SCH (15:00)
[2018-04-14] MEDS: CIPROFLOXACIN HCL 500 MG TAB PO SCH (15:02)
[2018-04-14] MEDS: MELATONIN 3MG PO SCH ×2 (22:00→23:29)
[2018-04-14] MEDS: MYCOPHENOLIC ACID 360 MG TAB PO SCH (23:30)
[2018-04-15 04:40] VITALS: BP 128/81
[2018-04-15] MEDS: InsuLIN REG 1unit/0.01ml Soln (100units/ml) SC SCH ×3 (05:19→18:00)
[2018-04-15] MEDS: ACCU-CHEK COMFORT CURVE STRIP VI SCH ×3 (05:19→18:26)
[2018-04-15] MEDS: HYDROcodone-ACET 10/325MG TAB PO PRN ×4 (05:41→16:33)
[2018-04-15] MEDS: HYDROmorphone HCL 2 MG/ML VL IV PRN ×6 (08:02→22:36)
[2018-04-15 08:49] VITALS: BP 104/67
[2018-04-15] MEDS: MYCOPHENOLIC ACID 360 MG TAB PO SCH ×2 (11:05→21:19)
[2018-04-15] MEDS: CIPROFLOXACIN HCL 500 MG TAB PO SCH (11:05)
[2018-04-15 13:00] VITALS: BP 117/75
[2018-04-15] MEDS ORDERED: FUROSEMIDE 40 MG/4 ML VIAL IV ONE (14:30)
[2018-04-15 14:58] LABS: Basophils # (auto) 0 uL; Basophils % (auto) 0.3 % (0.0-2.0); Eosinophils # (auto) 0.5 uL; Eosinophils % (auto) 5.1 % (0.0-7.0); Hematocrit 38.1 % (41.0-53.0); Hemoglobin 12.3 g/dL (13.5-17.5); Lymphocytes % (auto) 20.6 % (10.0-50.0); Mean Corpuscular Hemoglobin 29.5 pg (28.0-32.0); Mean Corpuscular Hgb Conc. 32.1 g/dL (32.0-36.0); Mean Corpuscular Volume 91.9 fL (80.0-100.0); Monocytes # (auto) 1.4 uL; Monocytes % (auto) 13.8 % (0.0-12.0); Neutrophils # (auto) 5.9 uL; Neutrophils % (auto) 60.2 % (37.0-80.0); Nucleated Red Blood Cells % 0.1 %; Platelet Count (auto) 178 10^3/uL (140-450); Red Blood Cells 4.15 10^6/uL (4.5-5.90); Red Cell Distribution Width 13.5 % (11.8-14.3); White Blood Cell 9.8 10^3/uL (4.4-10.8)
[2018-04-15 15:17] LABS: Albumin 1.8 g/dL (3.4-5.0); BUN/Creatinine Ratio 20.2; Bilirubin, Total 0.4 mg/dL (0.2-1.0); Calcium 7.6 mg/dL (8.5-10.1); Potassium 5.5 mmol/L (3.5-5.1); Total Protein 5.1 g/dL (6.4-8.2)
[2018-04-15 16:32] VITALS: BP 125/76
[2018-04-15] MEDS: MELATONIN 3MG PO SCH (21:18)
[2018-04-15 22:00] VITALS: BP 128/77
[2018-04-16] MEDS: ACCU-CHEK COMFORT CURVE STRIP VI SCH ×5 (00:01→23:56)
[2018-04-16] MEDS: InsuLIN REG 1unit/0.01ml Soln (100units/ml) SC SCH ×5 (00:02→23:56)
[2018-04-16] MEDS: CIPROFLOXACIN HCL 500 MG TAB PO SCH ×2 (02:22→21:05)
[2018-04-16 05:00] VITALS: BP 133/88
[2018-04-16] MEDS: HYDROmorphone HCL 2 MG/ML VL IV PRN ×6 (06:02→21:06)
[2018-04-16 07:38] VITALS: BP 132/94
[2018-04-16] MEDS: HYDROcodone-ACET 10/325MG TAB PO PRN ×3 (07:45→14:57)
[2018-04-16] MEDS: MYCOPHENOLIC ACID 360 MG TAB PO SCH ×2 (10:00→21:06)
[2018-04-16 12:07] VITALS: BP 115/67
[2018-04-16] MEDS ORDERED: CYANOCOBALAMIN (B-12) 1000 MCG/1 ML VIAL IM ONE (14:45)
[2018-04-16] MEDS ORDERED: TESTOSTERONE CYPIONATE 200 MG/ML 1ML VIAL IM ONE (14:45)
[2018-04-16 16:25] LABS: Basophils # (auto) 0.1 uL; Basophils % (auto) 0.8 % (0.0-2.0); Eosinophils # (auto) 0.5 uL; Eosinophils % (auto) 4.4 % (0.0-7.0); Hematocrit 38.3 % (41.0-53.0); Hemoglobin 12.7 g/dL (13.5-17.5); Lymphocytes # (auto) 1.6 uL; Lymphocytes % (auto) 14.7 % (10.0-50.0); Mean Corpuscular Hemoglobin 30.7 pg (28.0-32.0); Mean Corpuscular Hgb Conc. 33.2 g/dL (32.0-36.0); Mean Corpuscular Volume 92.3 fL (80.0-100.0); Monocytes # (auto) 1.3 uL; Monocytes % (auto) 11.7 % (0.0-12.0); Neutrophils # (auto) 7.5 uL; Neutrophils % (auto) 68.4 % (37.0-80.0); Nucleated Red Blood Cells % 0.1 %; Platelet Count (auto) 204 10^3/uL (140-450); Red Blood Cells 4.15 10^6/uL (4.5-5.90); Red Cell Distribution Width 14.1 % (11.8-14.3)
[2018-04-16 16:30] VITALS: BP 111/70
[2018-04-16 18:50] LABS: Anion Gap 7 (5-15); Blood Urea Nitrogen 38 mg/dL (7-18); Carbon Dioxide 26 mmol/L (21-32); Chloride 102 mmol/L (98-107); Glucose 205 mg/dL (74-106); Potassium 5.1 mmol/L (3.5-5.1); Sodium 135 mmol/L (136-145)
[2018-04-16 18:51] LABS: Alanine Aminotransferase 17 U/L (16-61); Alkaline Phosphatase 50 U/L (45-117); Aspartate Aminotransferase 29 U/L (15-37); BUN/Creatinine Ratio 20.3; Calcium 7.8 mg/dL (8.5-10.1); GFR African American 45 mL/min; GFR Non-African American 38 mL/min
[2018-04-16 18:52] LABS: Bilirubin, Total 0.3 mg/dL (0.2-1.0); Total Protein 5.5 g/dL (6.4-8.2)
[2018-04-16 20:59] VITALS: BP 111/70
[2018-04-16] MEDS: MELATONIN 3MG PO SCH (21:06)
[2018-04-16 22:00] VITALS: BP 111/76
[2018-04-17] VITALS (7 sets, daily range): BP systolic 102–135; BP diastolic 64–85
[2018-04-17] MEDS: ACCU-CHEK COMFORT CURVE STRIP VI SCH ×3 (06:01→17:47)
[2018-04-17] MEDS: InsuLIN REG 1unit/0.01ml Soln (100units/ml) SC SCH ×3 (06:02→17:47)
[2018-04-17] MEDS: HYDROmorphone HCL 2 MG/ML VL IV PRN ×3 (06:02→21:03)
[2018-04-17] MEDS: MYCOPHENOLIC ACID 360 MG TAB PO SCH ×2 (09:41→21:29)
[2018-04-17] MEDS: CIPROFLOXACIN HCL 500 MG TAB PO SCH (15:00)
[2018-04-17] MEDS: ONDANSETRON HCL 4 MG/2 ML VIAL IV PRN (18:53)
[2018-04-17] MEDS: MELATONIN 3MG PO SCH (21:29)
[2018-04-18] MEDS: ACCU-CHEK COMFORT CURVE STRIP VI SCH ×3 (00:01→12:08)
[2018-04-18] MEDS: InsuLIN REG 1unit/0.01ml Soln (100units/ml) SC SCH ×3 (00:12→12:08)
[2018-04-18] MEDS: ONDANSETRON HCL 4 MG/2 ML VIAL IV PRN ×3 (02:05→11:53)
[2018-04-18 05:23] VITALS: BP 121/79
[2018-04-18 08:07] VITALS: BP 111/74
[2018-04-18] MEDS: CIPROFLOXACIN HCL 500 MG TAB PO SCH (08:56)
[2018-04-18] MEDS: MYCOPHENOLIC ACID 360 MG TAB PO SCH (08:57)
[2018-04-18] MEDS: HYDROmorphone HCL 2 MG/ML VL IV PRN (09:19)
[2018-04-18 13:16] VITALS: BP 125/67
[2018-04-18 15:48] VITALS: BP 125/67
[2018-04-18 16:57] VITALS: BP 107/78
== END 2018-04-18 17:00 | disposition home health service (06) | DRG 314 ==
LOC: EDBD 14:55 → ER 14:59 → TELE 15:00 → TELE-EAST 22:18
PROVIDERS: ADMIT Internal Medicine Cardiovascular Disease; ATTEND Internal Medicine Cardiovascular Disease
PROC: 5A09357 Assistance with Respiratory Ventilation, Less than 24 Consecutive Hours, Continuous Positive Airway Pressure (ICD-10-PCS; principal; 2018-04-14)
PROC: 5A09357 Assistance with Respiratory Ventilation, Less than 24 Consecutive Hours, Continuous Positive Airway Pressure (ICD-10-PCS; 2018-04-15)
PROC: 5A09357 Assistance with Respiratory Ventilation, Less than 24 Consecutive Hours, Continuous Positive Airway Pressure (ICD-10-PCS; 2018-04-16)
PROC: 5A09357 Assistance with Respiratory Ventilation, Less than 24 Consecutive Hours, Continuous Positive Airway Pressure (ICD-10-PCS; 2018-04-17)
PROC: 5A09357 Assistance with Respiratory Ventilation, Less than 24 Consecutive Hours, Continuous Positive Airway Pressure (ICD-10-PCS; 2018-04-18)
DX: I95.9 Hypotension, unspecified (principal); E43 Unspecified severe protein-calorie malnutrition; J98.11 Atelectasis; I25.811 Atherosclerosis of native coronary artery of transplanted heart without angina pectoris; N19 Unspecified kidney failure; I50.9 Heart failure, unspecified; G47.30 Sleep apnea, unspecified; D64.9 Anemia, unspecified; E11.21 Type 2 diabetes mellitus with diabetic nephropathy; G93.89 Other specified disorders of brain; E11.40 Type 2 diabetes mellitus with diabetic neuropathy, unspecified; Z68.29 Body mass index [BMI] 29.0-29.9, adult; I11.0 Hypertensive heart disease with heart failure; I25.5 Ischemic cardiomyopathy; K57.90 Diverticulosis of intestine, part unspecified, without perforation or abscess without bleeding; M19.90 Unspecified osteoarthritis, unspecified site; Z80.51 Family history of malignant neoplasm of kidney; Z82.49 Family history of ischemic heart disease and other diseases of the circulatory system; Z90.5 Acquired absence of kidney; Z95.1 Presence of aortocoronary bypass graft; Z85.528 Personal history of other malignant neoplasm of kidney
CPT/HCPCS: 36415; 70450; 71045; 74176; 80053; 82962; 83605; 83880; 84484; 85025; 85610; 85730; 87040; 87081; 93005; 94660; 96361; 96365; 96372; 97116; 97163; J1071; J1815; J2405; J2543

== ENCOUNTER 2018-04-20 16:05 | Inpatient (IN) | payer MEDICARE ==
[~2018-04-20] VITALS: Ht 177.8 cm; Wt 95.8 kg
[~2018-04-20 16:05] MED LIST changes: -ATOR80TA PO; -ENOX80IN8 SC; +MELA3TAB27 PO
[2018-04-20 16:43] LABS: Basophils # (auto) 0.1 uL; Basophils % (auto) 0.4 % (0.0-2.0); Eosinophils # (auto) 0.9 uL; Eosinophils % (auto) 7.1 % (0.0-7.0); Hematocrit 35.3 % (41.0-53.0); Hemoglobin 11.5 g/dL (13.5-17.5); Lymphocytes # (auto) 3.2 uL; Lymphocytes % (auto) 26.2 % (10.0-50.0); Mean Corpuscular Hemoglobin 29.4 pg (28.0-32.0); Mean Corpuscular Hgb Conc. 32.6 g/dL (32.0-36.0); Mean Corpuscular Volume 90.2 fL (80.0-100.0); Monocytes # (auto) 1.5 uL; Neutrophils # (auto) 6.7 uL; Neutrophils % (auto) 54.3 % (37.0-80.0); Nucleated Red Blood Cells % 0.1 %; Platelet Count (auto) 184 10^3/uL (140-450); Red Blood Cells 3.91 10^6/uL (4.5-5.90); Red Cell Distribution Width 13.4 % (11.8-14.3); White Blood Cell 12.4 10^3/uL (4.4-10.8)
[2018-04-20 17:17] LABS: Albumin 2.1 g/dL (3.4-5.0); BUN/Creatinine Ratio 10.1; Bilirubin, Total 0.4 mg/dL (0.2-1.0); Calcium 7.9 mg/dL (8.5-10.1); Magnesium 1.9 mg/dL (1.6-2.6); Potassium 4.5 mmol/L (3.5-5.1); Total Protein 5.6 g/dL (6.4-8.2)
[2018-04-20] MEDS ORDERED: ASPirin 81 mg TAB PO ONE (17:30)
[2018-04-20 17:36] LABS: INR 1.02 (0.9-1.15); Partial Thromboplastin Time 27.5 sec (23.78-33.04); Prothrombin Time 10.9 sec (9.27-12.13)
[2018-04-20] MEDS ORDERED: DEXTROSE (50%) 50ML SYRG IV PRN (18:45)
[2018-04-20] MEDS ORDERED: MORPHINE SULF INJ 2 MG/ML SYRINGE 1ML IV PRN (18:45)
[2018-04-20] MEDS ORDERED: BENAZEPRIL HCL 10 MG TAB PO ONE (18:45)
[2018-04-20] MEDS ORDERED: NITROGLYCERIN 0.4 MG SL TAB SL PRN (18:45)
[2018-04-20 20:05] VITALS: BP 109/65
[2018-04-20 22:00] VITALS: BP 109/65
[2018-04-20] MEDS ORDERED: MYCOPHENOLATE 250 MG CAP PO SCH (22:00)
[2018-04-20] MEDS ORDERED: GEMFIBROZIL 600 MG TAB PO ONE (22:00)
[2018-04-20] MEDS ORDERED: SIMETHICONE 80 MG CHEWABLE TABLET PO PRN (22:00)
[2018-04-20] MEDS: ACCU-CHEK COMFORT CURVE STRIP VI SCH (22:50)
[2018-04-20] MEDS: InsuLIN REG 1unit/0.01ml Soln (100units/ml) SC SCH (22:50)
[2018-04-20] MEDS: PANCREATIC ENZYMES 4200 UNIT CAP PO SCH (22:53)
[2018-04-20] MEDS: FLUDROCORTISONE ACETATE 0.1 MG TAB PO SCH (22:53)
[2018-04-20] MEDS: TACROLIMUS 1 MG CAP PO SCH (22:53)
[2018-04-20] MEDS: LEVETIRACETAM 500 MG TAB PO SCH (22:53)
[2018-04-20] MEDS: GEMFIBROZIL 600 MG TAB PO SCH (22:54)
[2018-04-20] MEDS: CELLCEPT PO SCH (23:00)
[2018-04-21] MEDS ORDERED: ONDANSETRON ODT 4 MG TAB PO PRN
[2018-04-21] MEDS ORDERED: HYDROcodone-ACET 10/325MG TAB PO PRN
[2018-04-21 02:23] VITALS: BP 109/65
[2018-04-21 05:30] VITALS: BP 94/56
[2018-04-21] MEDS: PANCREATIC ENZYMES 4200 UNIT CAP PO SCH ×3 (06:19→22:17)
[2018-04-21] MEDS: InsuLIN REG 1unit/0.01ml Soln (100units/ml) SC SCH ×4 (07:00→23:00)
[2018-04-21] MEDS: ACCU-CHEK COMFORT CURVE STRIP VI SCH ×4 (07:00→22:23)
[2018-04-21] MEDS: INSULIN LANTUS (GLARGINE) 1 /0.01ml (100units/ml) SC SCH (07:12)
[2018-04-21 07:32] LABS: Basophils # (auto) 0.1 uL; Basophils % (auto) 0.5 % (0.0-2.0); Eosinophils # (auto) 0.9 uL; Eosinophils % (auto) 9.4 % (0.0-7.0); Hemoglobin 10.8 g/dL (13.5-17.5); Lymphocytes # (auto) 2.7 uL; Lymphocytes % (auto) 27.1 % (10.0-50.0); Mean Corpuscular Hemoglobin 29.4 pg (28.0-32.0); Mean Corpuscular Hgb Conc. 32.9 g/dL (32.0-36.0); Mean Corpuscular Volume 89.6 fL (80.0-100.0); Monocytes # (auto) 1.2 uL; Monocytes % (auto) 11.9 % (0.0-12.0); Neutrophils % (auto) 51.1 % (37.0-80.0); Nucleated Red Blood Cells % 0.1 %; Platelet Count (auto) 189 10^3/uL (140-450); Red Blood Cells 3.68 10^6/uL (4.5-5.90); Red Cell Distribution Width 13.5 % (11.8-14.3); White Blood Cell 9.8 10^3/uL (4.4-10.8)
[2018-04-21 07:50] LABS: Albumin 1.8 g/dL (3.4-5.0); BUN/Creatinine Ratio 11.4; Calcium 7.5 mg/dL (8.5-10.1); Potassium 4.3 mmol/L (3.5-5.1)
[2018-04-21 07:53] LABS: Bilirubin, Total 0.4 mg/dL (0.2-1.0)
[2018-04-21 09:00] VITALS: BP 98/64
[2018-04-21] MEDS: GEMFIBROZIL 600 MG TAB PO SCH ×3 (10:00→22:18)
[2018-04-21] MEDS: predniSONE 20 MG TAB PO SCH ×2 (10:00→13:38)
[2018-04-21] MEDS: PANTOPRAZOLE 40 MG TAB PO SCH (10:00)
[2018-04-21] MEDS: LEVETIRACETAM 500 MG TAB PO SCH ×3 (10:00→22:17)
[2018-04-21] MEDS: TACROLIMUS 1 MG CAP PO SCH ×3 (10:00→22:17)
[2018-04-21] MEDS: BENAZEPRIL HCL 10 MG TAB PO SCH (10:00)
[2018-04-21] MEDS: HCTZ 25 MG TAB PO SCH (10:00)
[2018-04-21] MEDS: ATORVASTATIN 20 MG TAB PO SCH ×2 (10:00→13:38)
[2018-04-21] MEDS: CELLCEPT PO SCH ×3 (10:00→22:17)
[2018-04-21] MEDS: CALCIUM W/VIT D (600MG/400IU) TAB PO SCH ×2 (10:00→13:38)
[2018-04-21] MEDS: FLUDROCORTISONE ACETATE 0.1 MG TAB PO SCH ×3 (10:00→22:18)
[2018-04-21] MEDS: MAGNESIUM OXIDE 400 MG TAB PO SCH ×2 (10:00→13:38)
[2018-04-21] MEDS: POTASSIUM CHL 10 Meq TABLET PO SCH ×2 (10:00→13:38)
[2018-04-21 13:19] VITALS: BP 111/65
[2018-04-21] MEDS: HYDROcodone-ACET 10/325MG TAB PO PRN ×2 (14:58→21:09)
[2018-04-21 17:24] VITALS: BP 94/56
[2018-04-21 22:00] VITALS: BP 90/61
[2018-04-22 05:00] VITALS: BP 99/66
[2018-04-22] MEDS: PANCREATIC ENZYMES 4200 UNIT CAP PO SCH ×2 (05:33→11:29)
[2018-04-22] MEDS: ACCU-CHEK COMFORT CURVE STRIP VI SCH ×3 (06:32→17:00)
[2018-04-22] MEDS: INSULIN LANTUS (GLARGINE) 1 /0.01ml (100units/ml) SC SCH (06:55)
[2018-04-22] MEDS: InsuLIN REG 1unit/0.01ml Soln (100units/ml) SC SCH ×3 (06:55→17:00)
[2018-04-22 09:00] VITALS: BP 119/68
[2018-04-22] MEDS: GEMFIBROZIL 600 MG TAB PO SCH (10:00)
[2018-04-22] MEDS: POTASSIUM CHL 10 Meq TABLET PO SCH (10:00)
[2018-04-22] MEDS: HCTZ 25 MG TAB PO SCH (10:00)
[2018-04-22] MEDS: MAGNESIUM OXIDE 400 MG TAB PO SCH (10:00)
[2018-04-22] MEDS: ATORVASTATIN 20 MG TAB PO SCH (10:00)
[2018-04-22] MEDS: PANTOPRAZOLE 40 MG TAB PO SCH (10:00)
[2018-04-22] MEDS: CALCIUM W/VIT D (600MG/400IU) TAB PO SCH (10:00)
[2018-04-22] MEDS: LEVETIRACETAM 500 MG TAB PO SCH (10:00)
[2018-04-22] MEDS: BENAZEPRIL HCL 10 MG TAB PO SCH (11:27)
[2018-04-22] MEDS: predniSONE 20 MG TAB PO SCH (11:28)
[2018-04-22] MEDS: FLUDROCORTISONE ACETATE 0.1 MG TAB PO SCH (11:28)
[2018-04-22] MEDS: CELLCEPT PO SCH (11:28)
[2018-04-22] MEDS: TACROLIMUS 1 MG CAP PO SCH (11:29)
[2018-04-22 13:00] VITALS: BP 132/64
[2018-04-22 16:47] VITALS: BP 132/64
[2018-04-22 17:10] VITALS: BP 132/64
[2018-04-23] MEDS ORDERED: ENOXAPARIN SOD 80 MG/0.8ML SYRINGE SC SCH (10:00)
== END 2018-04-22 17:55 | disposition home or self-care (01) | DRG 643 ==
LOC: ER 16:05 → EDBD 16:05 → TELE 16:06 → TELE-CENTR 19:31
PROVIDERS: ADMIT Internal Medicine Cardiovascular Disease; ATTEND Internal Medicine Cardiovascular Disease
PROC: 5A09457 Assistance with Respiratory Ventilation, 24-96 Consecutive Hours, Continuous Positive Airway Pressure (ICD-10-PCS; principal; 2018-04-22)
DX: E27.40 Unspecified adrenocortical insufficiency (principal); E43 Unspecified severe protein-calorie malnutrition; Z94.1 Heart transplant status; E11.9 Type 2 diabetes mellitus without complications; N19 Unspecified kidney failure; G40.909 Epilepsy, unspecified, not intractable, without status epilepticus; G47.30 Sleep apnea, unspecified; I10 Essential (primary) hypertension; I25.5 Ischemic cardiomyopathy; J98.6 Disorders of diaphragm; Z82.49 Family history of ischemic heart disease and other diseases of the circulatory system; Z90.5 Acquired absence of kidney; Z88.8 Allergy status to other drugs, medicaments and biological substances; Z85.528 Personal history of other malignant neoplasm of kidney
CPT/HCPCS: 36415; 71045; 80053; 82962; 83735; 83880; 84443; 84484; 85025; 85610; 85652; 85730; 86141; 87040; 87081; 93005; 93306; 94660; 94761; J1815; J7507; J7517

== ENCOUNTER → 2018-04-23 | Outpatient (CLI) | payer MEDICARE ==
[~2018-04-23] VITALS: Ht 30.5 cm; Wt 0.5 kg
[~2018-04-23] MED LIST changes: -GEMF600T3 PO; +GEMF600T7 PO; +MVI in SODIUM CHLORIDE 0.9% 1,000 ML IVB ONE; +MVI in SODIUM CHLORIDE 0.9% 1,010 ML ONE
[2018-04-23 10:40] VITALS: BP 78/49
[2018-04-23 13:40] VITALS: BP 108/67
[2018-04-23 16:22] LABS: Basophils # (auto) 0.1 uL; Basophils % (auto) 0.4 % (0.0-2.0); Eosinophils # (auto) 0.1 uL; Eosinophils % (auto) 0.4 % (0.0-7.0); Hematocrit 35.9 % (41.0-53.0); Hemoglobin 11.7 g/dL (13.5-17.5); Lymphocytes # (auto) 2.8 uL; Lymphocytes % (auto) 20.2 % (10.0-50.0); Mean Corpuscular Hemoglobin 29.6 pg (28.0-32.0); Mean Corpuscular Hgb Conc. 32.7 g/dL (32.0-36.0); Mean Corpuscular Volume 90.7 fL (80.0-100.0); Monocytes # (auto) 1.1 uL; Monocytes % (auto) 7.7 % (0.0-12.0); Neutrophils # (auto) 9.8 uL; Neutrophils % (auto) 71.3 % (37.0-80.0); Platelet Count (auto) 283 10^3/uL (140-450); Red Blood Cells 3.96 10^6/uL (4.5-5.90); Red Cell Distribution Width 13.6 % (11.8-14.3); White Blood Cell 13.8 10^3/uL (4.4-10.8)
[2018-04-23 16:41] LABS: Albumin 2.5 g/dL (3.4-5.0); BUN/Creatinine Ratio 15.4; Bilirubin, Total 0.4 mg/dL (0.2-1.0); Calcium 8.3 mg/dL (8.5-10.1); Potassium 4.4 mmol/L (3.5-5.1); Total Protein 6.2 g/dL (6.4-8.2)
== END | disposition home or self-care (01) ==
LOC: CHF HDHVI 10:43
PROVIDERS: ATTEND Internal Medicine Cardiovascular Disease
DX: E86.0 Dehydration (principal); I13.0 Hypertensive heart and chronic kidney disease with heart failure and stage 1 through stage 4 chronic kidney disease, or unspecified chronic kidney disease; E11.22 Type 2 diabetes mellitus with diabetic chronic kidney disease; N18.9 Chronic kidney disease, unspecified; I50.23 Acute on chronic systolic (congestive) heart failure; D64.9 Anemia, unspecified; I95.9 Hypotension, unspecified; I25.2 Old myocardial infarction; K21.9 Gastro-esophageal reflux disease without esophagitis; Z95.1 Presence of aortocoronary bypass graft; Z94.1 Heart transplant status; Z79.4 Long term (current) use of insulin; Z79.899 Other long term (current) drug therapy
CPT/HCPCS: 36415; 80053; 82962; 83880; 85025; 96365; 96366; G0463; J3411; J3475

== ENCOUNTER → 2018-04-24 | Outpatient (CLI) | payer MEDICARE ==
[~2018-04-24] MED LIST changes: -MVI in SODIUM CHLORIDE 0.9% 1,000 ML IVB ONE; +MVI in SODIUM CHLORIDE 0.9% 500 ML IVB ONE
[2018-04-24 10:35] VITALS: BP 109/68
[2018-04-24 14:25] VITALS: BP 126/87
== END | disposition home or self-care (01) ==
LOC: CHF HDHVI 10:44
PROVIDERS: ATTEND Internal Medicine Cardiovascular Disease
DX: K57.90 Diverticulosis of intestine, part unspecified, without perforation or abscess without bleeding (principal); J98.11 Atelectasis; I13.0 Hypertensive heart and chronic kidney disease with heart failure and stage 1 through stage 4 chronic kidney disease, or unspecified chronic kidney disease; E11.22 Type 2 diabetes mellitus with diabetic chronic kidney disease; N18.4 Chronic kidney disease, stage 4 (severe); I50.23 Acute on chronic systolic (congestive) heart failure; E78.5 Hyperlipidemia, unspecified; E11.40 Type 2 diabetes mellitus with diabetic neuropathy, unspecified; E11.21 Type 2 diabetes mellitus with diabetic nephropathy; G47.30 Sleep apnea, unspecified; I25.2 Old myocardial infarction; I25.10 Atherosclerotic heart disease of native coronary artery without angina pectoris; K21.9 Gastro-esophageal reflux disease without esophagitis; F41.9 Anxiety disorder, unspecified; Z95.1 Presence of aortocoronary bypass graft; Z94.1 Heart transplant status; Z79.4 Long term (current) use of insulin; Z90.49 Acquired absence of other specified parts of digestive tract; Z79.899 Other long term (current) drug therapy; Z85.528 Personal history of other malignant neoplasm of kidney; Z86.711 Personal history of pulmonary embolism; Z85.828 Personal history of other malignant neoplasm of skin; Z79.02 Long term (current) use of antithrombotics/antiplatelets
CPT/HCPCS: 74176; 96365; 96366; G0463; J3411; J3475

== ENCOUNTER 2018-05-03 16:52 | Inpatient (IN) | payer MEDICARE ==
[~2018-05-03] VITALS: Ht 175.3 cm; Wt 91.7 kg
[2018-05-03 18:37] LABS: Basophils # (auto) 0.1 uL; Basophils % (auto) 0.7 % (0.0-2.0); Eosinophils # (auto) 0.2 uL; Eosinophils % (auto) 2.6 % (0.0-7.0); Hematocrit 35.9 % (41.0-53.0); Hemoglobin 11.5 g/dL (13.5-17.5); Lymphocytes # (auto) 2.9 uL; Lymphocytes % (auto) 33.2 % (10.0-50.0); Mean Corpuscular Hemoglobin 29.3 pg (28.0-32.0); Mean Corpuscular Volume 91.5 fL (80.0-100.0); Monocytes # (auto) 1.1 uL; Monocytes % (auto) 12.4 % (0.0-12.0); Neutrophils # (auto) 4.5 uL; Neutrophils % (auto) 51.1 % (37.0-80.0); Nucleated Red Blood Cells % 0.1 %; Platelet Count (auto) 329 10^3/uL (140-450); Red Blood Cells 3.92 10^6/uL (4.5-5.90); Red Cell Distribution Width 14.7 % (11.8-14.3); White Blood Cell 8.7 10^3/uL (4.4-10.8)
[2018-05-03 18:46] LABS: Albumin 2.3 g/dL (3.4-5.0); BUN/Creatinine Ratio 13.6; Calcium 7.9 mg/dL (8.5-10.1); Magnesium 1.3 mg/dL (1.6-2.6); Potassium 4.6 mmol/L (3.5-5.1)
[2018-05-03 18:51] LABS: Bilirubin, Total 0.5 mg/dL (0.2-1.0); Total Protein 5.8 g/dL (6.4-8.2)
[2018-05-03 19:06] LABS: INR 1.05 (0.9-1.15); Prothrombin Time 11.2 sec (9.27-12.13)
[2018-05-03] MEDS ORDERED: ACETAMINOPHEN 325 MG TAB PO PRN (21:30)
[2018-05-03] MEDS ORDERED: DOCUSATE SOD 100 MG CAP PO PRN (21:30)
[2018-05-03] MEDS ORDERED: DEXTROSE (50%) 50ML SYRG IV PRN (21:30)
[2018-05-03] MEDS ORDERED: TEMAZEPAM 15 MG CAP PO PRN (21:30)
[2018-05-03] MEDS ORDERED: ONDANSETRON HCL 4 MG/2 ML VIAL IV PRN (21:30)
[2018-05-03] MEDS ORDERED: TACROLIMUS 1 MG CAP PO SCH ×2 (22:00)
[2018-05-03] MEDS: MYCOPHENOLATE 250 MG CAP PO SCH (22:00)
[2018-05-03] MEDS ORDERED: ENOXAPARIN SOD 100 MG/1 ML SYRINGE SC SCH (22:00)
[2018-05-03 22:40] VITALS: BP 125/92
[2018-05-03] MEDS: LEVETIRACETAM 500 MG TAB PO SCH (23:00)
[2018-05-03] MEDS: GEMFIBROZIL 600 MG TAB PO SCH (23:01)
[2018-05-03] MEDS: TACROLIMUS 1 MG CAP PO SCH (23:01)
[2018-05-04] MEDS: HYDROcodone-ACET 5/325MG TAB PO PRN ×2 (00:01→22:23)
[2018-05-04] MEDS: MAGNESIUM SULFATE 1GM/100ML 100 ML IV SCH ×2 (00:04)
[2018-05-04] MEDS: ACCU-CHEK COMFORT CURVE STRIP VI SCH ×4 (00:05→17:39)
[2018-05-04 04:46] VITALS: BP 120/68
[2018-05-04 05:27] LABS: Basophils # (auto) 0.1 uL; Basophils % (auto) 0.7 % (0.0-2.0); Eosinophils # (auto) 0.2 uL; Eosinophils % (auto) 3.1 % (0.0-7.0); Hematocrit 35.8 % (41.0-53.0); Hemoglobin 11.3 g/dL (13.5-17.5); Lymphocytes # (auto) 3.1 uL; Lymphocytes % (auto) 40.7 % (10.0-50.0); Mean Corpuscular Hemoglobin 29.4 pg (28.0-32.0); Mean Corpuscular Hgb Conc. 31.6 g/dL (32.0-36.0); Monocytes % (auto) 13.5 % (0.0-12.0); Neutrophils # (auto) 3.2 uL; Nucleated Red Blood Cells % 0.1 %; Platelet Count (auto) 300 10^3/uL (140-450); Red Blood Cells 3.85 10^6/uL (4.5-5.90); Red Cell Distribution Width 14.9 % (11.8-14.3); White Blood Cell 7.6 10^3/uL (4.4-10.8)
[2018-05-04] MEDS: InsuLIN REG 1unit/0.01ml Soln (100units/ml) SC SCH ×4 (06:00→17:39)
[2018-05-04 06:13] LABS: Albumin 2.4 g/dL (3.4-5.0); BUN/Creatinine Ratio 14.8; Bilirubin, Total 0.6 mg/dL (0.2-1.0); Calcium 7.7 mg/dL (8.5-10.1); Potassium 4.7 mmol/L (3.5-5.1); Total Protein 5.2 g/dL (6.4-8.2)
[2018-05-04] MEDS: GEMFIBROZIL 600 MG TAB PO SCH ×2 (06:53→17:38)
[2018-05-04 08:24] VITALS: BP 145/98
[2018-05-04] MEDS: PANCREATIC ENZYMES 4200 UNIT CAP PO SCH ×3 (08:52→17:38)
[2018-05-04] MEDS: ENOXAPARIN SOD 100 MG/1 ML SYRINGE SC SCH ×2 (10:03→22:23)
[2018-05-04] MEDS: MYCOPHENOLATE 250 MG CAP PO SCH ×2 (10:03→22:25)
[2018-05-04] MEDS: PANTOPRAZOLE 40 MG TAB PO SCH (10:04)
[2018-05-04] MEDS: ASPirin 81 mg TAB PO SCH (10:04)
[2018-05-04] MEDS: FLUDROCORTISONE ACETATE 0.1 MG TAB PO SCH (10:04)
[2018-05-04] MEDS: LEVETIRACETAM 500 MG TAB PO SCH ×2 (10:04→22:23)
[2018-05-04] MEDS: MAGNESIUM OXIDE 400 MG TAB PO SCH (10:04)
[2018-05-04] MEDS: BENAZEPRIL HCL 10 MG TAB PO SCH (10:05)
[2018-05-04] MEDS: TACROLIMUS 1 MG CAP PO SCH ×2 (10:05→22:24)
[2018-05-04 12:49] LABS: Urine Bacteria NONE SEEN /hpf (None Seen); Urine Blood Negative /uL (Negative); Urine Specific Gravity 1.012 (1.001-1.035); Urine WBC <1 /hpf (0 - 3)
[2018-05-04 12:51] VITALS: BP 127/81
[2018-05-04 16:47] VITALS: BP 121/73
[2018-05-04 21:27] VITALS: BP 117/77
[2018-05-05] MEDS: ACCU-CHEK COMFORT CURVE STRIP VI SCH ×3 (00:13→12:48)
[2018-05-05 05:37] VITALS: BP 144/70
[2018-05-05] MEDS: InsuLIN REG 1unit/0.01ml Soln (100units/ml) SC SCH ×3 (06:00→12:48)
[2018-05-05] MEDS: GEMFIBROZIL 600 MG TAB PO SCH ×2 (06:49→17:00)
[2018-05-05] MEDS: PANCREATIC ENZYMES 4200 UNIT CAP PO SCH ×2 (08:05→12:47)
[2018-05-05 08:21] VITALS: BP 145/87
[2018-05-05] MEDS ORDERED: predniSONE 5 MG TAB PO SCH (10:00)
[2018-05-05] MEDS: TACROLIMUS 1 MG CAP PO SCH (10:13)
[2018-05-05] MEDS: MYCOPHENOLATE 250 MG CAP PO SCH (10:13)
[2018-05-05] MEDS: LEVETIRACETAM 500 MG TAB PO SCH (10:13)
[2018-05-05] MEDS: FLUDROCORTISONE ACETATE 0.1 MG TAB PO SCH (10:14)
[2018-05-05] MEDS: BENAZEPRIL HCL 10 MG TAB PO SCH (10:14)
[2018-05-05] MEDS: ASPirin 81 mg TAB PO SCH (10:14)
[2018-05-05] MEDS: PANTOPRAZOLE 40 MG TAB PO SCH (10:14)
[2018-05-05] MEDS: MAGNESIUM OXIDE 400 MG TAB PO SCH (10:14)
[2018-05-05] MEDS: HYDROcodone-ACET 5/325MG TAB PO PRN (10:26)
[2018-05-05 12:11] VITALS: BP 123/79
[2018-05-05 14:22] VITALS: BP 145/87
[2018-05-05 17:18] VITALS: BP 121/78
[2018-05-05] MEDS ORDERED: ENOXAPARIN SOD 40 MG/0.4 ML SYRINGE SC ONE (19:30)
== END 2018-05-05 17:10 | disposition home or self-care (01) | DRG 299 ==
LOC: ER 16:56 → OVERFLOW 16:57 → CENTRAL 23:07
PROVIDERS: ADMIT Nurse Practitioner; ATTEND Nurse Practitioner
PROC: 5A09357 Assistance with Respiratory Ventilation, Less than 24 Consecutive Hours, Continuous Positive Airway Pressure (ICD-10-PCS; principal; 2018-05-03)
PROC: 5A09357 Assistance with Respiratory Ventilation, Less than 24 Consecutive Hours, Continuous Positive Airway Pressure (ICD-10-PCS; 2018-05-04)
DX: I82.612 Acute embolism and thrombosis of superficial veins of left upper extremity (principal); E43 Unspecified severe protein-calorie malnutrition; E27.40 Unspecified adrenocortical insufficiency; J90 Pleural effusion, not elsewhere classified; J98.11 Atelectasis; Z94.1 Heart transplant status; E11.9 Type 2 diabetes mellitus without complications; G47.30 Sleep apnea, unspecified; I08.0 Rheumatic disorders of both mitral and aortic valves; I10 Essential (primary) hypertension; K57.30 Diverticulosis of large intestine without perforation or abscess without bleeding; N28.9 Disorder of kidney and ureter, unspecified; Z82.3 Family history of stroke; Z82.49 Family history of ischemic heart disease and other diseases of the circulatory system; Z85.528 Personal history of other malignant neoplasm of kidney; I25.2 Old myocardial infarction; Z90.5 Acquired absence of kidney; Z88.8 Allergy status to other drugs, medicaments and biological substances; Z90.49 Acquired absence of other specified parts of digestive tract
CPT/HCPCS: 36415; 71046; 80053; 81001; 82962; 83735; 84484; 85025; 85379; 85610; 85730; 87081; 93005; 93971; 94660; 94761; J1815; J7507; J7517

== ENCOUNTER → 2018-05-03 | Outpatient (CLI) | payer MEDICARE ==
[~2018-05-03] MED LIST changes: +GEMF600T3 PO; -GEMF600T7 PO; -MVI in SODIUM CHLORIDE 0.9% 1,010 ML ONE; -MVI in SODIUM CHLORIDE 0.9% 500 ML IVB ONE
[2018-05-03 12:12] LABS: Urine Bacteria NONE SEEN /hpf (None Seen); Urine Blood Negative /uL (Negative); Urine Specific Gravity 1.017 (1.001-1.035); Urine WBC 1 /hpf (0 - 3)
[2018-05-03 12:17] LABS: Basophils # (auto) 0 uL; Basophils % (auto) 0.5 % (0.0-2.0); Eosinophils # (auto) 0.2 uL; Hematocrit 38.8 % (41.0-53.0); Hemoglobin 12.3 g/dL (13.5-17.5); Lymphocytes # (auto) 3.3 uL; Lymphocytes % (auto) 36.7 % (10.0-50.0); Mean Corpuscular Hgb Conc. 31.6 g/dL (32.0-36.0); Mean Corpuscular Volume 91.8 fL (80.0-100.0); Monocytes # (auto) 0.9 uL; Monocytes % (auto) 10.5 % (0.0-12.0); Neutrophils # (auto) 4.5 uL; Neutrophils % (auto) 50.3 % (37.0-80.0); Nucleated Red Blood Cells % 0.5 %; Platelet Count (auto) 370 10^3/uL (140-450); Red Blood Cells 4.23 10^6/uL (4.5-5.90); White Blood Cell 8.9 10^3/uL (4.4-10.8)
[2018-05-03 12:29] LABS: BUN/Creatinine Ratio 12.3; Calcium 8.3 mg/dL (8.5-10.1); Potassium 4.3 mmol/L (3.5-5.1)
== END | disposition home or self-care (01) ==
LOC: LAB 08:54
PROVIDERS: ATTEND Internal Medicine Cardiovascular Disease
DX: E11.22 Type 2 diabetes mellitus with diabetic chronic kidney disease (principal); N18.9 Chronic kidney disease, unspecified; I50.9 Heart failure, unspecified; K85.90 Acute pancreatitis without necrosis or infection, unspecified; Z90.5 Acquired absence of kidney; Z88.1 Allergy status to other antibiotic agents
CPT/HCPCS: 36415; 80048; 80061; 80197; 81001; 83036; 85025; 87497